=== PATIENT | female | born 1965 | race Caucasian/White ===

== ENCOUNTER → 2018-09-08 | Outpatient (CLI) | payer BC, SELFPAY ==
[2018-09-08 09:28] VITALS: BMI 26.2
--- NOTE | 2018-09-08 09:40 | RAD_ITS ---
STUDY: X-RAY - LEFT ANKLE REASON FOR EXAM: Lateral ankle pain. TECHNIQUE: 3 view(s) of the ankle. COMPARISON: None. FINDINGS: Normal visualized distal tibia and fibula. Normal medial and lateral malleoli. Normal tibiotalar articulation and ankle mortise. Normal visualized talus. There are posterior and plantar calcaneal enthesophytes. The visualized subtalar, talonavicular, calcaneocuboid and tarsal articulations are normal. The soft tissue structures are unremarkable. RAD/Ankle min 3 Views IMPRESSION: Calcaneal enthesopathy. Electronically Signed: Baljit Scott MD at 12:30 EDT Tel , Service support ,
== END | disposition home or self-care (01) ==
LOC: HPRAD 09:38
PROVIDERS: Family Provider Internal Medicine; PCP Internal Medicine; Referring Provider Orthopaedic Surgery; Visit Provider Orthopaedic Surgery
DX: M25.572 Pain in left ankle and joints of left foot (principal)
CPT/HCPCS: 73610

== ENCOUNTER 2018-09-14 11:49 | Outpatient (RCR) | payer BC, SELFPAY ==
[2018-09-08 09:28] VITALS: BMI 26.2
--- NOTE | 2018-10-31 11:14 | HP.PTEVAL_ITS ---
Patient's Visit Information RENZO HALL is a 52 year old F referred to Physical Therapy by Afsaneh Mitchell DO with a diagnosis of L ankle pain. Date of Evaluation: 09/14/18 Physical Therapist: John Masterson DPT - Visit Plan Frequency: 2x /Week Duration: 4-6 Weeks Plan: Start with US to lateral peroneals, ankle strengthening exercises and gentle ROM as toelrated. Progress as able. - Subjective Findings: Pt. is here today for her initial evaluation with diagnosis of L ankle pain. Pt. reports having increased pain for a while now, but has recently become worse. Pt. denies mech of injury. Pt. reports no N/T. Pt. has icnreased paln with all standing/walking and wt. bearing. Pt. reports havign an xray but no MRI. Pt. is able to sleep without issues. Pt. is hopeful to reduce symptoms in order to get back to all work and recreational activities without limitations. - Pain L ankle Pain Intensity (Out of 10): 4 Pain Intensity Range: 3, 9 Comment: pain throughout - Objective POSTURE: Pt. has equal wt. shift in stance. Pt. has sligth over pronation in SLS. Pt. has present ankle instability and proprioception issues. PALAPTION: Pt. at lateral ankle the worst, but does have some achilles tendon pain as well. NEURO: normal throuhgout. ROM: Pt. has full ROM, but does report increasred pain with EVR and with DF. MMT: Pt. has 4+/5 strength throughout and increased pain increase EVR and PF motions. GAIT: Pt. has slight antalgic pattern during L stance phase with gait, but very slight decreaed R step length. STAIRS: increased pain with descending. - Goals Goal 1:: Pt. to be I with HEP. Goal Time Frame: 4-6 Weeks Goal 2:: Pt. to have full L ankle ROM without increase in symptoms. Goal Time Frame: 4-6 Weeks Goal 3:: Pt to have increased L ankle strength to full withotu increase in symptoms. Goal Time Frame: 4-6 Weeks Goal 4:: Pt. to ambulate unlimited distances without incerase in symptoms. Goal Time Frame: 4-6 Weeks Goal 5:: Pt. to negotiate steps without increase in symptoms. Goal Time Frame: 4-6 Weeks Goal 6:: Pt. to be able to maintain SLS with increased stability for 30sec. Goal Time Frame: 4-6 Weeks - Rehabilitation Potential Physical Therapy Diagnosis: Pt. has signs of L ankle pain. Pt. has full motion, but icreased pain with end range EVR and DF motions. Pt. has pain with similar MMT testing. Pt. would benefit from PT to reduce symptoms and increase strength for improved proprioception during walking and balance. Rehabilitation Potential: Good - Anticipated Interventions Patient/Client Instruction: Educate patient on: Condition, Plan of Care, Risk Factors, Benefits of Fitness Program For the Purpose of:: To improve decision making, To facilitate caregiver knowledge, To improve self management, To prevent re-injury, To improve ability to perform tasks related to life management, To improve tolerance to ADL's Therapeutic Exercise to Include: Strength training, Power training, Endurance training, Balance training, Agility training, Body mechanics, Passive ROM, Acti ve ROM For the Purpose of:: To decrease pain, To increase ROM, To improve nutrient delivery to tissue, To increase oxygenation perfusion, To improve muscle performance and motor function, To improve gait and locomotor functions, To improve health of tissue, To decrease soft tissue restriction, To increase flexibility/ROM Ultrasound (thermal/non thermal): Yes For the Purpose of:: To decrease pain, To increase ROM, To improve nutrient delivery to tissue Thank you for the opportunity to evaluate your patient. For Medicare and Medicare HMO plans, please review the plan of care and approve it. It will need to be FAXED BACK to us at [phone] for Medicare purposes. For Medicare only, by signing this I certify the plan of care. Please let me know if there are questions or concerns regarding this plan of care. Physician Signature: Date:
== END 2018-09-14 19:00 | disposition home or self-care (01) ==
LOC: PT 11:49
PROVIDERS: Family Provider Internal Medicine; PCP Internal Medicine; Visit Provider Orthopaedic Surgery
DX: M25.572 Pain in left ankle and joints of left foot (principal)
CPT/HCPCS: 97161

== ENCOUNTER → 2018-09-27 | Outpatient (CLI) | payer BC, SELFPAY ==
[2018-09-08 09:28] VITALS: BMI 26.2
--- NOTE | 2018-09-27 10:18 | MRI_ITS ---
STUDY: MRI LEFT ANKLE WITHOUT CONTRAST REASON FOR EXAM: Female, 52 years old. Left heel and anterior ankle pain for 18 months. TECHNIQUE: Standardized fat and water weighted pulse sequences were obtained in all 3 orthogonal planes. COMPARISON: X-rays of the ankle dated September 08, 2018. FINDINGS: Normal subcutis adipose space. Normal posterior tibialis tendon. Normal flexor digitorum longus tendon. Normal flexor hallucis longus tendon. Normal peroneus longus and brevis tendons. Normal tibialis anterior tendon. Normal extensor hallucis longus tendon. Normal extensor digitorum longus tendons. Normal Achilles tendon and teno-osseous insertion. Minimal thickening of the proximal plantar fascia (sagittal series 7 images from a). Normal plantar calcaneal tubercles. Normal intrinsic muscles of the rearfoot. Normal distal tibiofibular syndesmotic ligamentous complex. Normal lateral ligamentous complex. Normal subtalar ligaments and sinus tarsi. Normal deltoid ligamentous complexes. Normal plantar calcaneonavicular (spring) ligament. Small tibiotalar joint effusion (sagittal series 7 image 9). Normal talar dome. Mild arthrosis of the subtalar joint with a small subtalar joint effusion (sagittal series 7 images 7-11). Normal talonavicular articulation. Normal calcaneocuboid articulation. Normal navicular-cuneiform articulations. MRI/Lower Ext Joint Only (Routine) IMPRESSION: Minimal thickening of the proximal plantar fascia. Mild arthrosis of the subtalar joint with a small subtalar joint effusion. Small tibiotalar joint effusion. Electronically Signed: Clyde Chatman MD at 11:25 EDT , Service support ,
== END | disposition home or self-care (01) ==
LOC: MRI 10:13
PROVIDERS: Family Provider Internal Medicine; PCP Internal Medicine; Referring Provider Orthopaedic Surgery; Visit Provider Orthopaedic Surgery
DX: M76.62 Achilles tendinitis, left leg (principal); M67.88 Other specified disorders of synovium and tendon, other site
CPT/HCPCS: 73721

== ENCOUNTER 2018-12-02 05:57 | Day surgery (SDC) | payer BC, SELFPAY ==
[2018-09-29 12:34] VITALS: BMI 26.2
[2018-12-02] VITALS (14 sets, daily range): BP systolic 127–147; BP diastolic 72–92; PULSE 71–94; RESP 14–16; TEMP 36.1–36.8; O2SAT 93–99; BMI 29.0
--- NOTE | 2018-12-02 06:13 | EKG12_ITS ---
Test Reason : PRE-OP Blood Pressure : / mmHG Vent. Rate : 070 BPM Atrial Rate : 070 BPM P-R Int : 194 ms QRS Dur : 104 ms QT Int : 410 ms P-R-T Axes : 054 016 020 degrees QTc Int : 442 ms Normal sinus rhythm Low voltage QRS T wave abnormality, consider anterior ischemia Abnormal ECG When compared with ECG of 20-JAN-2015 10:21, No significant change was found Confirmed by JOSE OAKLEY, SIMONE ([id number]), publications editor LEONEL NG ([id number]) on 12/05/2018 3:49:02 PM Referred By: Mary Phillips Confirmed By:MICHELE GARCIA MD
[2018-12-02] MEDS: Lactated Ringers 1,000 ML 80 ML IV (07:00)
--- NOTE | 2018-12-02 07:30 | RAD_ITS ---
STUDY: X-RAY - LEFT CALCANEUS REASON FOR EXAM: Female, 52 years old. Resection of heel spur. TECHNIQUE: 3 cone down intraoperative view(s) of the calcaneus were obtained. COMPARISON: None. FINDINGS: Intraoperative imaging provided for excision of the spur at insertion of the Achilles tendon. RAD/Calcaneus min 2 Views IMPRESSION: Intraoperative imaging provided for resection of the spur at the level of the insertion of the Achilles tendon. Electronically Signed: Deric Campbell, at 13:13 EDT , Service support ,
[2018-12-02] MEDS: Bupivacaine Mpf 0.5% 30 ML VIAL (10:11)
--- NOTE | 2018-12-02 10:19 | RAD_ITS ---
STUDY: X-RAY - LEFT FOOT CLINICAL: Female, 52 years old. Left heel spur resection. TECHNIQUE: 3 view(s) of the foot. COMPARISON: Comparison is made with prior examination earlier today as well as September 08, 2018. FINDINGS: The patient is status post resection of the spur at the insertion of the Achilles tendon. RAD/Foot min 3 Views IMPRESSION: Status post resection of the spur at the insertion of the Achilles tendon. Electronically Signed: Deric Campbell, at 13:15 EDT , Service support ,
--- NOTE | 2018-12-02 10:21 | DCINST_ITS ---
Discharge Diet: No Restrictions Discharge Activity: May not drive while taking narcotic pain medications. Weight Bearing Status: No weight bearing Keep extremity elevated above heart level: Left Leg Call your doctor if your incision/area has: Continuous Slow Oozing, Sudden Increased Bleeding, Increased Pain/ Swelling, Increased Redness, Foul Smelling Discharge, Swelling at the incision site Call your doctor if you observe: Fever of 101 or Higher, Coldness, Increased Pain, Numbness or Tingling, Calf discomfort, Uncontrolled pain Cleanse incision/area with: Keep Dressing Clean & Dry Allergies/Adverse Reactions: Allergies bacitracin [From Neosporin ([id number])] Allergy (Verified 11/28/18 09:08) Rash bacitracin zinc [From Neosporin ([id number])] Allergy (Verified 11/28/18 09:08) Rash beeswax Allergy (Verified 11/28/18 09:08) Rash coconut oil Allergy (Verified 11/28/18 09:08) Rash diphenhydramine HCl [From Benadryl] Allergy (Verified 11/28/18 09:08) Hives erythromycin base Allergy (Verified 11/28/18 09:08) Rash latex Allergy (Verified 11/28/18 09:08) Rash neomycin sulfate [From Neosporin ([id number])] Allergy (Verified 11/28/18 09:08) Rash NSAIDS (Non-Steroidal Anti-Inflamma Allergy (Verified 11/28/18 09:08) Rash Penicillins Allergy (Verified 11/28/18 09:08) Anaphylaxis polymyxin B [From Neosporin ([id number])] Allergy (Verified 11/28/18 09:08) Rash strawberry Allergy (Verified 11/28/18 09:08) Rash topiramate [From Topamax] Allergy (Verified 11/28/18 09:08) Rash tramadol Allergy (Verified 11/28/18 09:08) Rash aspirin Adverse Reaction (Verified 11/28/18 09:08) Vomiting codeine phosphate [From Tylenol-Codeine #3] Adverse Reaction (Verified 11/28/18 09:08) Vomiting hydrocodone Adverse Reaction (Verified 11/28/18 09:08) Other SEVERE HEADACHES, POSSIBLE MIGRAINES morphine Adverse Reaction (Verified 11/28/18 09:08) Swelling Medications to take at Discharge Amitriptyline HCl [Elavil] 150 mg PO QHS 01/20/15 Esomeprazole Mag Trihydrate [Nexium] 20 mg PO DAILY 01/20/15 Metaxalone [Skelaxin] 800 mg PO TID PRN PRN 01/20/15 Nabumetone [Relafen] 750 mg PO PRN PRN 01/20/15 Simvastatin [Zocor] 40 mg PO QHS 01/20/15 Sumatriptan Succinate [Imitrex] 100 mg PO .X1 PRN 01/20/15 Ondansetron [Zofran Odt] 4 mg PO Q8H PRN PRN #10 tab 04/01/16 Gabapentin [Neurontin] 100 mg PO QHS 11/28/18 Multivitamin [Daily Multiple Vitamin] 1 ea PO DAILY 11/28/18 Primary Care Physician: Alexandria Styles MD [Primary Care Provider] - Test Results: Test results from this visit will be discussed in further detail at your follow- up appointment, if applicable. Please Follow Up With: Mary Phillips DPM When: [facility]. Call [phone] sooner if concerns. Proposed Discharge Date: 12/02/18
--- NOTE | 2018-12-02 10:22 | PCM.OPRPT ---
Problem List (1) Calcaneal spur, left Status: Chronic (2) Achilles tendinitis, left leg Status: Chronic (3) Gastrocnemius equinus of left lower extremity Status: Chronic Report of Operation Date of Procedure: 12/02/18 Pre-Operative Diagnosis: Left insertional Achilles tendinitis. 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 Left gastrocnemius equinus Post-Operative Diagnosis: Left insertional Achilles tendinitis. 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 Left gastrocnemius equinus Surgery/Procedure Performed:: Endoscopic gastrocnemius recession left lower extremity. Resection of left calcaneus exostosis with de and reattachment of the Achilles tendon with bone anchors Description of Surgical Findings:: Hemostasis: Well-padded pneumatic left thigh tourniquet 62 minutes, 350 mmHg Materials: 3-0 Vicryl, 4-0 nylon, 2-0 FiberWire, Arthrex speed bridge including 4.75 mm swivel lock anchors (4) Complications: None Specimens: None The patient tolerated the procedure and anesthesia well. She was transported to the PACU with vital signs stable and vascular status intact to the left lower extremity. She did have some abnormal rhythm strip changes noted intraoperative and an EKG and cardiac labs were ordered for the PACU evaluation. Postoperative x-rays were reviewed prior to leaving the operating room with adequate resection of the posterior calcaneus exostosis. No acute injuries noted. Postoperative orders were entered electronically. nuclear reactor technician: none - Surgeon: Mary Phillips DPM. Solderer Assembly Repair: Noa Nobles [id number] Type of Anesthesia:: General, Local - Intraoperative: 1% lidocaine with epinephrine was administered to the gastrocnemius recession site, 7 mL. One-to-one ratio of 1% lidocaine plain and 0.5% Marcaine plain was administered in a sterile and tibial nerve block fashion to the left lower extremity, 11 mL Specimen's removed: none Estimated Blood Loss (mL): <50 mL Description of Procedure: Indications: This 52-year-old female with significant past medical history of GERD, chronic migraines, and hypercholesteremia presents complaining of chronic posterior left heel pain. She has pain and limitations with daily activities including walking and standing. Her pain is also aggravated with direct touch. She failed conservative care including change in shoes and insoles, rest, offloading with aperture pads, heel lifts, stretching and strengthening exercises, and pain and anti inflammation medication. Preoperative x-rays demonstrate Flaquito deformity with a prominent posterior superior calcaneal margin. There is also insertional Achilles exostosis noted to the posterior central and lateral aspect clinically and radiographically. No other acute injuries are noted. Her calcaneal inclination angle was also normal. There was no bone cysts or other trabecular irregularities of the calcaneus noted on xrays. She has pain on palpation mainly to the posterior central lateral Achilles insertion area of the left achilles on the calcaneus. She also has pain to the retrocalcaneal bursa site. She has reduced ankle dorsiflexion of -5 degrees with the knee extended of the left lower extremity. Her preoperative MRI demonstrated exostosis to the posterior Achilles insertion on the calcaneus with intratendinous calcification. There is also a prominent posterior superior calcaneus tuberosity with inflammation to the retrocalcaneal bursa. There is no other distinct Achilles tears or rupture. The preoperative indication, planned procedure, possible benefits, risk, complications, and anticipated healing time and management were discussed in detail the patient. She understands and elects to proceed with surgery at this time. No guarantees were made. She understands risks and complications may include but are not limited to the following: pain, swelling, scarring, over under correction, allergic reaction, blood clot, need for further surgery, delayed or nonhealing of the incision or bone, hardware failure, recurrence, loss of limb, function, life. The informed surgical consent and limb were signed. Her preoperative clearance was obtained by her primary care physician and her preoperative diagnostic data including CBC, CMP, and EKG were reviewed. Additionally, on the morning of surgery elastic assembler did review the EKG to confirm the abnormal changes were consistent with prior EKGs and no acute injuries were suspected at this time. This was also reviewed by PCP and anesthesiologist. Procedure in detail: The patient was transported to the operating room via cart. General anesthesia was initiated by the anesthesia team. She was then carefully placed on the operating table in the prone position in a well-padded and protected manner. Preoperative IV antibiotics were administered. A well-padded pneumatic left thigh tourniquet was placed. The left lower extremity is prepped and draped in usual aseptic manner. Local anesthetic was administered at this time by the podiatry team. Surgery began the following manner. The medial gastrocnemius head was marked and a 1 cm linear incision was made along the medial border of the gastrocnemius aponeurosis several centimeters distal to the medial gastrocnemius head. Blunt dissection was performed down to identify the gastrocnemius aponeurosis border. Next a metallic trocar was entered between the gastrocnemius aponeurosis and the superficial fascial layer in which a stab incision was made laterally to allow this to exit. The endoscopic cannula was next entered. Next the arthroscopy camera was entered through the cannula and the viewing field was cleansed with cotton tip applicators and a rasp. The gastrocnemius aponeurosis was clearly identified without evidence of entrapped neurovascular structures along the entire course. Next an endoscopic blade was entered and this was carefully released with the foot in a dorsiflexed position until the underlying soleus muscle belly was visualized. Intraoperative pictures were taken to capture the full release of this structure. Improved ankle dorsiflexion was noted after this was released. This was irrigated with saline. Minimal Vicryl suture was used to reapproximate the deep part of the medial portal site. The skin was reapproximated with nylon sutures utilizing horizontal mattress technique. Attention was next directed to the posterior aspect of the left heel. An Esmarch bandage was used to exsanguinate the left lower extremity and the tourniquet was inflated at this time. A curvilinear incision was made through the skin. Minimal blunt dissection was performed down to the Achilles tendon level taking care to create a full-thickness flap and to allow good exposure to the preoperatively marked sites of pain. A fresh 15 blade was next used to incise the Achilles tendon centrally and this was reflected medially and laterally with a distal T incision to allow good exposure. The prominent hypertrophic posterior heel spur was identified and was resected with a sagittal saw and rongeur. This was further rasped down until smooth. Intraoperative fluoroscopy was used to confirm adequate resection. It is noted the clinically marked area of palpation pain was also smoothed and there was no longer a prominent bone remaining. The Achilles tendon appeared to be overall intact without additional tears or hypertrophy. The retrocalcaneal bursa that was inflamed clinically and also an MRI exam was also excised with a rongeur. This was copiously irrigated with normal saline. Next the swivel lock anchors were entered to apply the speed bridge with the fiber tape. The two proximal anchors were applied approximately 1 cm proximal to the distal most insertion point of the Achilles. This was performed successfully in a non divergent manner according to standard protocol. The Achilles was noted to be in a good resting tension position. A free 2-0 fiber wire was used to reapproximate the longitudinally incised Achilles. The remaining 2 distal anchors were applied to the distal posterior aspect of the calcaneus. The fiber wires were laying flat and there were no palpable prominent soft tissue or bone remaining. Solid fixation was achieved. Proper positioning and adequate spur resection was confirmed with intraoperative fluoroscopy. No acute injuries were noted. The tourniquet was deflated at this time and brisk capillary refill time was noted to all digits of the left foot and also to all incisional margin sites. Postoperative injection was also administered this time. Deep closure was achieved with 3-0 Vicryl and the skin was reapproximated with 4-0 nylon utilizing horizontal mattress technique. A postoperative dressing was applied including jumpstart silver impregnated dressing secured with an overlying tegaderm. Additional gauze and Betadine were applied to the gastrocnemius recession site and this was secured gauze, abdominal pad, Kerlix, and ROSEMARIE wrap. A well-padded pneumatic left lower extremity splint was applied with the foot in a slightly plantarflexed position and further secured with ROSEMARIE wrap. Care was taken to create an offloading pocket to keep pressure off of the achilles repair site. After procedure: The patient tolerated the procedure and anesthesia well. She was transported to the PACU with vital signs stable and vascular status intact to left lower extremity. She was advised to ice and elevate for pain and inflammation management. She was advised to remain nonweightbearing to the left lower extremity with the posterior mold splint in place and the use of crutches or walker for assistance. She will take Percocet as needed for pain control and was advised on safe and proper use. To keep the dressing and splint intact until [facility]. Postoperative x-rays were already reviewed. No specimens were sent. A repeat post operative EKG and troponin was ordered. Her lab results were normal and she was discharged home after anesthesia review. Her postoperative orders were entered electronically. Mary Phillips DPM, [facility] Grafts/Implants Used: none - Complications none - Admit VTE Documentation VTE Present on Admission: No VTE Mechan Device Prophylaxis: SCD's VTE Pharm Prophylaxis ordered?: No Reason prophylaxis not ordered:: Procedure Not Indicated
--- NOTE | 2018-12-02 10:41 | EKG12_ITS ---
Test Reason : POST OP Blood Pressure : / mmHG Vent. Rate : 076 BPM Atrial Rate : 076 BPM P-R Int : 216 ms QRS Dur : 116 ms QT Int : 436 ms P-R-T Axes : 050 029 117 degrees QTc Int : 490 ms Sinus rhythm with 1st degree A-V block Low voltage QRS Non-specific ST & T wave changes Prolonged QT Abnormal ECG When compared with ECG of 02-DEC-2018 06:52, MANUAL COMPARISON REQUIRED, DATA IS UNCONFIRMED Confirmed by JOSE OAKLEY, SIMONE ([id number]), material expeditor LEONEL NG ([id number]) on 12/05/2018 3:49:28 PM Referred By: Mary Phillips Confirmed By:MICHELE GARCIA MD
== END 2018-12-02 13:30 | disposition home or self-care (01) ==
LOC: SDC 05:59 → AC 06:00
PROVIDERS: Anesthesiology; Family Provider Internal Medicine; PCP Internal Medicine; Referring Provider Podiatrist; Visit Provider Podiatrist
PROC: (CPT 29999; principal; 2018-12-02 07:15)
PROC: (CPT 28899; 2018-12-02 07:15)
DX: M77.32 Calcaneal spur, left foot (principal); M76.62 Achilles tendinitis, left leg; M21.6X2 Other acquired deformities of left foot; K21.9 Gastro-esophageal reflux disease without esophagitis; E78.00 Pure hypercholesterolemia, unspecified; G43.909 Migraine, unspecified, not intractable, without status migrainosus; R01.1 Cardiac murmur, unspecified; G25.81 Restless legs syndrome; F32.9 Major depressive disorder, single episode, unspecified; Z78.0 Asymptomatic menopausal state; Z79.899 Other long term (current) drug therapy; Z87.891 Personal history of nicotine dependence
CPT/HCPCS: 27650; 28119; 29999; 36415; 73630; 73650; 76000; 84484; 93005; J7120; J2405

== ENCOUNTER 2019-05-15 11:30 | Outpatient (RCR) | payer BC, SELFPAY ==
[2018-12-02 06:49] VITALS: BMI 29.0
--- NOTE | 2019-01-27 12:54 | HP.PTEVAL_ITS ---
Patient's Visit Information RENZO HALL is a 53 year old F referred to Physical Therapy by Mary Phillips DPM with a diagnosis of Left Gastroc Resection, heel resection, and reattatchment of the achiles Date of Evaluation: 01/27/19 Physical Therapist: Antonella Heránndez DPT - Visit Plan Frequency: 2x /Week Duration: 4 Weeks Plan: Focus on LE and core strength/stabilization and balance. Progression: cam with heel lift --- no heel lift ---out of CAM as tolerated. Fwb. HEP: ankle ROM, gastroc stretch gentle, WS gentle - Subjective Findings: Left Gastroc Resection, heel resection, and reattatchment of the ac jaspal 12/02/18. Is up to 75% weight bearing but wants her to wean into 100%. Patient reports that she has tenderness in the back of the heel just when she touches it. Current: 2/10 tender due to taking the boot off. Takes the boot off at night but when she is up and moving she has the boot on. Worst in the past week: 8/10 Agg: touching it, bumping it. Fell yesterday- but did not land on her foot. She falls a lot- long before this- has not had tests run- MD is not concerned. Best:0/10 Eases: pain medication, ice. Describes the pain as sharp/shooting and dull and achy. No pain that radiates up the leg. N/T from the surgery. Sleep: not disturbed- elevated at night. Work: cleans trailers- plans to go back. Very active before and wants to get back to doing all her normal things. PMHx/Meds: no changes since surgery. - Objective Posture: FH, RS. Gait: axillary crutches with WB through left LE with step through gait pattern. SLS: able to weight shift slightly- with foot flat on floor. ROM: DF: neutral with gentle OP, PF: 60 degrees, Inv: 30 degrees Ever: 30 degrees. Strength: 4-/5 throughout available range. Girth: Figure 8: 46.5 cm, Mets: 19/5 cm, Mall: 23 cm. Flex: Gastroc: severe Soleus: moderate HS: moderate - Goals Goal 1:: Patient will be I with HEP and progression Goal Time Frame: 4-6 Weeks Goal 2:: Patient will ambulate >300 feet with a normalized gait pattern in a shoe Goal Time Frame: 4-6 Weeks Goal 3:: Patient will demo 10 degrees of DF Goal Time Frame: 4-6 Weeks Goal 4:: Patient will SLS for 15 sec without LOB Goal Time Frame: 4-6 Weeks - Rehabilitation Potential Physical Therapy Diagnosis: Patient presents s/p surgical intervention to the left ankle- she has decreased ROM, strength and muscular endurance leading to abnormal gait and decreased ability to perform ADL's Rehabilitation Potential: Fair - Anticipated Interventions Patient/Client Instruction: Educate patient on: Benefits of Fitness Program Therapeutic Exercise to Include: Strength training, Endurance training, Balance training, Body mechanics, Postural training, Flexibilty training, Gait and locomotor training, Dynamic Lumbar Stabilization For the Purpose of:: To improve muscle performance and motor function Cryotherapy (ice pack, ice massage): Yes Thermo therapy (hot pack): Yes Thank you for the opportunity to evaluate your patient. For Medicare and Medicare HMO plans, please review the plan of care and approve it. It will need to be FAXED BACK to us at [phone] for Medicare purposes. For Medicare only, by signing this I certify the plan of care. Please let me know if there are questions or concerns regarding this plan of care. Physician Signature: Date:
--- NOTE | 2019-02-23 12:06 | HP.PTREVAL ---
Mary Phillips DPM, It has been my pleasure to treat RENZO HALL over the last 8 visits for Left Gastroc Resection, heel resection, and reattatchment of the achiles . Please see the progress note below for an update on the physical therapy plan of care! Subjective: Patient reports that she is doing her exercises. She is in the flat CAM boot- the back part is irritated but she still does not love to push down through the heel. Has not fallen in 3 weeks. Uses 2 crutches when she is out and then is using a single crutch at home- that is a work in progress. Sleep is not disturbed. Worst: 05/29. Objective/Function: Gait: antalgic- using single crutch and CAM walker- step to gait pattern. [place]patoin: not tender. SLS: WS but unable to SLS. Observation: no s/s of infection- good healing. ROM: DF: 4 degrees, PF: 60 degrees, Ever: 40 degrees Inv: 50 degrees- no pain. Strength: 4/5 throughout ankle. Flex: HS: severe, Gastroc: severe, Soleus: moderate. Edema: none Plan Plan: Continue 2x a week for 4 weeks. Goals Goal 1:: Patient will be I with HEP and progression Goal Time Frame: 4-6 Weeks Goal Progress: Progressing Goal 2:: Patient will ambulate >300 feet with a normalized gait pattern in a shoe Goal Time Frame: 4-6 Weeks Goal Progress: Progressing Goal 3:: Patient will demo 10 degrees of DF Goal Time Frame: 4-6 Weeks Goal Progress: Progressing Goal 4:: Patient will SLS for 15 sec without LOB Goal Time Frame: 4-6 Weeks Goal Progress: Progressing Anticipated Interventions Patient/Client Instruction: Educate patient on: Benefits of Fitness Program Therapeutic Exercise to Include: Strength training, Endurance training, Balance training, Body mechanics, Postural training, Flexibilty training, Gait and locomotor training, Dynamic Lumbar Stabilization For the Purpose of:: To improve muscle performance and motor function Cryotherapy (ice pack, ice massage): Yes Thermo therapy (hot pack): Yes Please do not hesitate to contact me at [phone] by phone or if you have questions or concerns regarding this new plan of care! Sincerely, Antonella Hernández DPT
--- NOTE | 2019-04-18 13:28 | HP.PTREVAL ---
Mary Phillips DPM, It has been my pleasure to treat RENZO HALL over the last 19 visits for Left Gastroc Resection, heel resection, and reattatchment of the achiles . Please see the progress note below for an update on the physical therapy plan of care! Subjective: Mild pain this date. Feels like she is improving. Pt reports she has fallen several times in the past. Objective/Function: L ankle DF ROM= 7 degrees. SLS: Pt is able to SLS on R LE greater than 15 seconds. L LE for only 2 seconds. Pt can ambulate greater than 300 feet without difficulty. Pt is progressing well toward Rx goals but would benefit from further skilled care to improve LE strength, balance, and ROM Plan Plan: cont with PT transitioning to land. Goals Goal 1:: Patient will be I with HEP and progression Goal Time Frame: 4-6 Weeks Goal Progress: Goal Met Goal 2:: Patient will ambulate >300 feet with a normalized gait pattern in a shoe Goal Time Frame: 4-6 Weeks Goal Progress: Goal Met Goal 3:: Patient will demo 10 degrees of DF Goal Time Frame: 4-6 Weeks Goal Progress: Progressing Goal 4:: Patient will SLS for 15 sec without LOB Goal Time Frame: 4-6 Weeks Goal Progress: Progressing Anticipated Interventions Patient/Client Instruction: Educate patient on: Benefits of Fitness Program Therapeutic Exercise to Include: Strength training, Endurance training, Balance training, Body mechanics, Postural training, Flexibilty training, Gait and locomotor training, Dynamic Lumbar Stabilization For the Purpose of:: To improve muscle performance and motor function Cryotherapy (ice pack, ice massage): Yes Thermo therapy (hot pack): Yes Please do not hesitate to contact me at [phone] by phone or if you have questions or concerns regarding this new plan of care! Sincerely, Michele Myrick, PT, ATC
--- NOTE | 2019-05-15 11:54 | HP.PTDCSUM ---
HP - PT D/C Summary It has been my pleasure to treat RENZO HALL under orders from Mary Phillips DPM, for the diagnosis of Left Gastroc Resection, heel resection, and reattatchment of the achiles 9 for a total of 27 visit(s). Discharge Date: Please see the following information for a summary of their discharge status. - Subjective Subjective: Patient reports that she is really happy with her progress. She feels that she is where she needs to be. She is going up/down the stairs indep. Is able to walk her dogs. There is nothing in her ADL's that she is unable to do. She think she can drive. She has had no falls. No pain in the ankle/foot unless she does something stupid. Does still swell sometimes but she thinks it always will. - Pain L heel Pain Intensity (Out of 10): 0 LB Pain Intensity (Out of 10): 0 - Overall Improvement % Improvement: 95 - Objective Objective/Function: Posture: good throughout. Gait: antalgic- decreased stance on the left LE with poor heel/toe pattern. SLS: 15 sec then lob. HR/TR: able. ROM: wfl. Strength:Ankle: 4+/5, Knee: 5/5, Hip: 4+/5 Core: fair - Goals Goal 1:: Patient will be I with HEP and progression Goal Progress: Goal Met Goal 2:: Patient will ambulate >300 feet with a normalized gait pattern in a shoe Goal Progress: Goal Met Goal 3:: Patient will demo 10 degrees of DF Goal Progress: Goal Met Goal 4:: Patient will SLS for 15 sec without LOB Goal Progress: Goal Met - Plan Plan: Discharge to HEP - D/C Information If there are questions or concerns regarding this patient's physical therapy, please feel free to call me at [phone]. Thank you for the referral of this patient. Sincerely, Antonella Hernández DPT
== END 2019-05-15 19:00 | disposition home or self-care (01) ==
LOC: PT 11:30
PROVIDERS: Family Provider Internal Medicine; PCP Internal Medicine; Referring Provider Podiatrist; Visit Provider Podiatrist
DX: Z98.890 Other specified postprocedural states (principal); Z91.81 History of falling
CPT/HCPCS: 97110; 97113; 97161; 97164

== ENCOUNTER 2021-05-12 12:17 | Outpatient (CLI) | payer BC, SELFPAY ==
--- NOTE | 2021-05-12 12:23 | RAD_ITS ---
STUDY: X-RAY - CERVICAL SPINE REASON FOR EXAM: Female, 55 years old. Neck pain and headache TECHNIQUE: 4 view(s) of the cervical spine were obtained. COMPARISON: None FINDINGS: Normal anterior atlantoaxial articulation. Normal odontoid process. There is straightening of the normal cervical lordosis. Normal vertebral bodies and endplates. Mild disc space narrowing throughout the cervical spine. The soft tissue structures are unremarkable. Surgical hardware in both sides of the mandible free of complication RAD/Cerv Spine 2 or 3 Views IMPRESSION: Mild age consistent degenerative changes, no acute findings Electronically Signed: Robi Mills MD at 16:32 EST ,
== END 2021-05-12 23:59 | disposition home or self-care (01) ==
LOC: RAD 12:22
PROVIDERS: PCP Internal Medicine; Referring Provider Anesthesiology Pain Medicine; Visit Provider Anesthesiology Pain Medicine
DX: M47.892 Other spondylosis, cervical region (principal)
CPT/HCPCS: 72040

== ENCOUNTER 2021-06-09 16:03 | Outpatient (CLI) | payer BC, SELFPAY ==
--- NOTE | 2021-06-09 16:05 | RAD_ITS ---
EXAM: XR RIGHT SHOULDER COMPLETE, 2 OR MORE VIEWS : 1965 CLINICAL INDICATION: SHOULDER PAIN TECHNIQUE: Two or more views of the right shoulder. This report was created using [employer] report generation technology. COMPARISON: None. FINDINGS: BONES/JOINTS: There is mild narrowing of the acromioclavicular joint. No acute fracture. No subluxation. Normal alignment. No sclerotic or destructive changes observed. SOFT TISSUES: Unremarkable. No soft tissue swelling or gas. No radiopaque foreign body. RAD/Shoulder min 2 Views IMPRESSION: No acute osseous abnormalities. There are degenerative changes with narrowing of the acromioclavicular joint. at 1744 Reported and signed by: Anthony López MD Electronically Signed: Anthony López MD at 17:43 EDT ,
--- NOTE | 2021-06-09 16:16 | RAD_ITS ---
EXAM: XR LEFT SHOULDER COMPLETE, 2 OR MORE VIEWS : 1965 CLINICAL INDICATION: SHOULDER PAIN TECHNIQUE: Two or more views of the left shoulder. This report was created using [employer] report generation technology. COMPARISON: None. FINDINGS: BONES/JOINTS: Unremarkable. No acute fracture. No subluxation. Normal alignment. Preservation of the joint space. No sclerotic or destructive changes observed. SOFT TISSUES: Unremarkable. No soft tissue swelling or gas. No radiopaque foreign body. RAD/Shoulder min 2 Views IMPRESSION: Negative left shoulder x-rays. at 1755 Reported and signed by: Anthony López MD Electronically Signed: Anthony López MD at 17:54 EDT ,
== END 2021-06-09 23:59 | disposition home or self-care (01) ==
LOC: RAD 16:04
PROVIDERS: PCP Internal Medicine; Referring Provider Anesthesiology Pain Medicine; Visit Provider Anesthesiology Pain Medicine
DX: M25.511 Pain in right shoulder (principal); M25.512 Pain in left shoulder
CPT/HCPCS: 73030

== ENCOUNTER → 2021-08-07 | Outpatient (CLI) | payer BC, SELFPAY ==
--- NOTE | 2021-08-07 15:06 | RAD_ITS ---
STUDY: X-RAY - LUMBAR SPINE REASON FOR EXAM: Female, 55 years old. LOW BACK PAIN M54.26 TECHNIQUE: XR Spine Lumbar 2 or 3 Views COMPARISON: None FINDINGS: Normal lumbar lordosis. There is no substantial scoliosis. There is a normal alignment of the vertebrae. Normal vertebral bodies and endplates. Normal disc space heights. The soft tissue structures are unremarkable. RAD/Lumbar Spine 2 or 3 Views IMPRESSION: There are no acute findings. Electronically Signed: Michele Radford MD at 15:37 EDT ,
== END | disposition home or self-care (01) ==
PROVIDERS: PCP Internal Medicine; Referring Provider Anesthesiology Pain Medicine; Visit Provider Anesthesiology Pain Medicine
DX: M54.16 Radiculopathy, lumbar region (principal)
CPT/HCPCS: 72100

== ENCOUNTER → 2021-09-10 | Outpatient (CLI) | payer BC, SELFPAY ==
[2021-09-10 12:33] LABS: BUP Internal Control LINE = VALID (VALID); Buprenorphine Drug Screen Positive (<10 ng/mL)
[2021-09-10 12:41] LABS: Amphetamine Urine VISTA NEGATIVE (<1000 ng/mL); Barbiturate Urine VISTA NEGATIVE (< 200 ng/mL); Benzodiazepine Urine VISTA NEGATIVE (< 200 ng/mL); Cocaine Urine VISTA NEGATIVE (< 300 ng/mL); Ecstacy Urine VISTA NEGATIVE (< 500 ng/mL); Methadone Urine VISTA NEGATIVE (< 300 ng/mL); PCP Urine VISTA NEGATIVE (< 25 ng/mL); THC Urine VISTA NEGATIVE (< 50 ng/mL); Vista UDS pH Range 5
== END | disposition home or self-care (01) ==
PROVIDERS: PCP Internal Medicine; Referring Provider Anesthesiology Pain Medicine; Visit Provider Anesthesiology Pain Medicine
DX: F11.20 Opioid dependence, uncomplicated (principal)
CPT/HCPCS: 80307

== ENCOUNTER 2021-12-03 13:00 | Outpatient (RCR) | payer BC, SELFPAY ==
--- NOTE | 2021-11-13 12:14 | HP.PTEVAL_ITS ---
Patient's Visit Information RENZO HALL is a 55 year old F referred to Physical Therapy by Dr. Neymar Shaw MD with a diagnosis of Neck pain. Date of Evaluation: 11/13/21 Physical Therapist: Agustín Alejandre, RUSLANT, OCS, CSCS - Visit Plan Frequency: 2-3x /Week Duration: 4-6 Weeks Plan: 2-3x/week for 4 weeks around vacation patient has in November. Mh, US to L UT, PROM L neck rotation and ext and manual traction, mobs for L rotation and extension. strengthening scap, posture and neck to HEP - Subjective Seeing [facility] for pain. Sent here for neck pain amy has gooten worse as it cracks and can get tingly down left shoulder blade. Has been there a number of months. Pain with catching 10/10 in L neck and it happens with turning head. Achy much of day and cracks if it turns. Sleep is not interrupted as long as she is on meds. Not employed. Has a 100 year old house that needs fixed up. Has wedding of son in 2 weeks in [place]. Lives with . Spends day cleaning house and messing aorund, works through pain. Basic ADLs are not a big problem. Has a patch in arm for all of her pain. - Pain L neck Pain Intensity (Out of 10): 5 Pain Intensity Range: 0, 10 - Objective Posture is forward head and prtracted scap. c/s L rot 40 and 50 R, 38 extension L more painful than r,. L UT tight vs R. SB not limited, just tight. Full UE AROM without pain. strength UE 4-/5 without pain or myotomal problems. reflexes 1/3 bi and tri. Sensation UE WNL to gross light touch. - c/s compression. Tender to the touch moderately L UT and lev scap area. - alar ligamnet test, - VAT - Balance/Special Test Scores Oswestry Neck Score: 7 - Goals Goal 1:: Full aROM cervical spine without pain or tightness Goal Time Frame: 4-6 Weeks Goal 2:: Pt neck feel 75% better with 2/10 pain at worst Goal Time Frame: 4-6 Weeks Goal 3:: I approp management of condition Goal Time Frame: 4-6 Weeks Goal 4:: ADLs without noticing neck pain or cracking Goal Time Frame: 4-6 Weeks - Rehabilitation Potential Physical Therapy Diagnosis: Neck pain and mobility limitations Rehabilitation Potential: Fair - Anticipated Interventions Patient/Client Instruction: Educate patient on: Condition, Plan of Care For the Purpose of:: To decrease pain, To increase ROM, To improve muscle performance and motor function, To increase tolerance to activity/condition/position, To improve ability of physical actions for home/community/work/leisure Therapeutic Exercise to Include: Strength training, Flexibilty training, Scapular Strength/Stabilization For the Purpose of:: To decrease pain, To increase ROM, To improve nutrient delivery to tissue, To improve muscle performance and motor function, To increase tolerance to activity/condition/position, To improve ability of physical actions for home/community/work/leisure Manual Therapy Techniques to Include: Mobilization, Passive ROM, Soft tissue m obilization For the Purpose of:: To decrease pain, To increase ROM, To improve muscle performance and motor function, To increase tolerance to activity/condition/position Thermo therapy (hot pack): Yes Ultrasound (thermal/non thermal): Yes For the Purpose of:: To decrease pain, To decrease swelling/inflammation Thank you for the opportunity to evaluate your patient. For Medicare and Medicare HMO plans, please review the plan of care and approve it. It will need to be FAXED BACK to us at [phone] for Medicare purposes. For Medicare only, by signing this I certify the plan of care. Please let me know if there are questions or concerns regarding this plan of c are. Physician Signature: Date:
--- NOTE | 2021-12-03 13:47 | HP.PTDCSUM ---
It has been my pleasure to treat RENZO HALL referred by Dr. Neymar Shaw MD, with the diagnosis of Neck pain for a total of 5 visit(s). Discharge Date: 12/03/21 Please see the following information for a summary of their discharge status. Subjective: Back from vacation. t was great. Neck is doing better. Almost does not hurt at all. Pain is minimal to gone. Swimiing at the beach helped. Got home exercises that she did while she was gone. To [place] tomorrow. Sleeping well . Activities at home are pretty normal. L neck Pain Intensity (Out of 10): 0 % Improvement: 95 Objective/Function: 68 AROM B cervical rotation and 55 ext without pain. Full UE and scap aROM without pain. No tenderness today in cervical region. Patient confident and comfortable continuing via HEP instead of continued therapy Goal 1:: Full aROM cervical spine without pain or tightness Goal Progress: Goal Met Goal 2:: Pt neck feel 75% better with 2/10 pain at worst Goal Progress: Goal Met Goal 3:: I approp management of condition Goal Progress: Goal Met Goal 4:: ADLs without noticing neck pain or cracking Goal Progress: Goal Met Plan: d/c to HEP If there are questions or concerns regarding this patient's physical therapy, please feel free to call me at [phone]. Thank you for the referral of this patient. Sincerely, Agustín Alejandre, DPT, OCS, CSCS Balance/Gait/Functional tests - Balance/Special Test Scores Oswestry Neck Score: 5
== END 2021-12-03 19:00 | disposition home or self-care (01) ==
LOC: PT 13:00
PROVIDERS: PCP Internal Medicine; Referring Provider Anesthesiology Pain Medicine; Visit Provider Anesthesiology Pain Medicine
DX: M54.2 Cervicalgia (principal)
CPT/HCPCS: 97110; 97161; 97164

== ENCOUNTER 2023-07-30 06:51 | Day surgery (SDC) | payer BC, SELFPAY ==
[2023-07-27 11:51] LABS: Magnesium 2.2 mg/dL (1.6-2.6)
[2023-07-27 11:54] LABS: Vitamin D,25 Hydroxy 39.6 ng/mL
[2023-07-27 12:37] LABS: Hemoglobin A1c 5.4 % (3.8-5.6)
[2023-07-28 16:09] LABS: Cotinine Screen Urine Negative ng/mL (Cutoff=300)
[2023-07-30] VITALS (10 sets, daily range): BP systolic 130–150; BP diastolic 81–97; PULSE 80–95; RESP 12–18; TEMP 36.1–37.2; O2SAT 93–99; BMI 28.8
--- NOTE | 2023-07-30 07:24 | PCM.OPRPT ---
Problems Associated Problem List Diagnoses (1) Gastrocnemius equinus of left lower extremity: (2) Achilles tendinitis, left leg: (3) Calcaneal spur, left: (4) Other bursitis, not elsewhere classified, left ankle and foot: (5) Strain of muscle and tendon of long extensor muscle of toe at ankle and foot level, left foot, initial encounter: (6) Tarsal tunnel syndrome, left lower limb: Report of Operation Date of Procedure: 07/30/23 Pre-Operative Diagnosis: 1. Gastrocnemius planus, left lower extremity 2. Achilles tendinitis, left lower extremity 3. Calcaneal spur, left heel 4. Retrocalcaneal bursitis, left lower extremity 5. Peroneal brevis tear, left lower extremity 6. Tarsal tunnel syndrome, left lower extremity Post-Operative Diagnosis: 1. Gastrocnemius planus, left lower extremity 2. Achilles tendinitis, left lower extremity 3. Calcaneal spur, left heel 4. Retrocalcaneal bursitis, left lower extremity 5. Peroneal brevis tear, left lower extremity 6. Tarsal tunnel syndrome, left lower extremity Surgery/Procedure Performed:: 1. Achilles tendon debridement and repair, left lower extremity 2. Partial excision of calcaneus, left lower extremity 3. Flexor hallucis longus tendon transfer, left lower extremity 4. Excision of retrocalcaneal bursa, left lower extremity 5. Peroneal brevis debridement and repair, left lower extremity 6. Steroid injection, tarsal tunnel, left lower extremity Description of Surgical Findings:: 1. Successful transfer of the flexor hallucis longus tendon to the calcaneus of the left extremity. 2. Successful reattachment of the Achilles tendon after debridement and repair with speed bridge anchor, left lower extremity 3. Evidence of tenosynovitis appreciated to the Achilles tendon which was debrided and sent to pathology 4. Complete removal of old hardware, speed bridge, left extremity 5. Evidence of exact Achilles strength/tension as compared to the contralateral limb. Surgeon: Masoud Villela disability insurance hearing officer: Pawan Mendez disability insurance hearing officer: John Jensen Type of Anesthesia: Block,Regional and General Anesthesiologist: Agustín Jordan Special Medications: Per anesthesia Specimen's removed: 1. Tenosynovitis, Achilles tendon, left lower extremity Drains: None Estimated Blood Loss (mL): 20 mL Fluids Replaced: Per anesthesia Description of Procedure: Indications For Operation: Mrs. Anglin is a 57-year-old female who was admitted to [facility] for elective left lower extremity surgery consisting of Achilles tendon debridement and repair, partial excision of calcaneus, FHL transfer, excision of bursa, peroneal brevis debridement and repair and steroid injection to the level of the Baxters nerve to the left lower extremity. Patient was seen in the private office for surgical consultation where MRI was reviewed with evidence of compromise to the level of the Achilles tendon, peroneal brevis and possible Baxters neuritis to left lower extremity. Conservative versus surgical treatment was offered to the patient. Patient admitted in office that she has been doing this for at least 2 years and would like to have a permanent fix even though she had left lower extremity surgery in the past by an outside provider. Patient is aware of all risk and benefits. Due to nature of the patient's left lower extremity deformity and has deemed necessary at this time to take the patient to the operating room to perform the above procedure to help correct the patient's deformity and relieve her constant pain. The nature of the problem, anticipated procedures, postop recovery/convalences and risk/complications include but not limited to infection, wound healing complications, digital amputation, hypertrophic scarring, numbness, tingling, chronic pain, CRPS, over and under correction, recurrence of deformity, DVT and or PE and the need for further surgery have been discussed in great detail with the patient. All questions have been answered to the patient's satisfaction. There are no guarantees given as to the outcome of the procedure. Description of Procedure: Under mild sedation, the patient was brought into the operating room and placed on the operating table in supine position. Once the patient was under general anesthesia intubation tube, the left lower extremity was blocked via anesthesia with a popliteal block. Please see procedure note from anesthesia for further detail. Next, a well-padded thigh tourniquet was applied to the left lower extremity. Next, the patient was flipped flipped prone by moving team. Next, the left lower extremity was prepped and draped in normal aseptic manner. Next, a timeout was then undertaken verifying the correct patient, extremity, visibility of preoperative markings, availability of the equipment. Next, attention was directed to the [right/left] lower extremity. Using a 6 inch Esmarch, left lower extremity was exsanguinated and elevated to 60 degrees for 1 minute. Procedure #1: Peroneal brevis debridement and repair (CPT: 68907) Next, attention was directed to the lateral aspect of the left lower extremity at the level of the peroneal brevis tendon. Using a sterile skin marker the incision was mapped out from the summit of the distal fibula to up 1 cm proximal to the insertion of the peroneal brevis of the styloid process of the fifth metatarsal base. Using a number #15 blade a full-thickness incision down to subcutaneous tissue was performed with care not to violate the tendinous sheath. All perforators were cauterized and ligated as necessary. Continued blunt dissection was carried down with a moist Ray-Yesenia. Using a [place] and Metzenbaum scissors the sheath was identified of the peroneal brevis. The sheath was opened to expose the peroneal brevis tendon which showed evidence of a longitudinal tear approximately 4 cm. Using a #5 mm dermal curette debridement and repair of the peroneus brevis tendon was performed. The tendon was read tubularized with 3-0 PDS in running baseball stitch suture technique. Identification of the peroneus longus tendon was identified and showed no evidence of tear. The incision was flushed with copious with normal saline. The deep layer and tendinous sheath was closed with 3-0 Monocryl l and running locking suture technique. The subcutaneous layer was reapproximated and closed with 3-0 Monocryl in running suture technique. The skin was closed and reapproximated using 3-0 nylon in horizontal mattress suture technique. Procedure #2: Achilles tendon debridement and repair (CPT: 73956). Procedure #3: Excision of retrocalcaneal bursa (CPT: 95070). Procedure #4: Partial excision of calcaneus (CPT code: 79972). Procedure #5: Flexor hallucis longus tendon transfer (CPT: 03133) Next, attention was directed to the Achilles tendon the left lower extremity. Using a sterile skin marker incision was marked out posterior medial to the Achilles tendon. Using a #15 blade a full-thickness lesion down to subcutaneous tissue was made. Continue blunt dissection was carried down to the level of the peritenon which showed evidence of scar tissue from previous surgery. Next, using a deep #15 blade, the Achilles tendon was incised centrally all the way down to the enthesophytes of the calcaneus. The Achilles tendon was booked and ended open allowing for exposure of the exostosis/deformity as well as the osteophytes to the left heel. The retrocalcaneal bursa was identified and removed at this time. Copious amounts of normal saline was used to flush the incision area. Next, using a sagittal saw and #111 blade, the exostosis and enthesophytes of the calcaneus were cut and removed without incident. It was noted, that after removal of the enthesophytes there was depression at the level of the skin to confirm that all necessary regrowth of bone was removed. Next, using a sagittal saw and blade the dorsal aspect of the level of the Flaquito's deformity was removed with partial excision of calcaneus. All the sharp edges of the calcaneus were smoothed with a reciprocating power rasp. Next, attention was redirected back to Achilles tendon, there showed evidence on the operating table of Achilles tendinosis. Using a #15 blade, the Achilles tendon was debrided down to and including tendon which was removed greater than 50%, passed to the back table to be sent off for pathology and identification. It was decided that after removal of copious amounts of tendinosis from the Achilles tendon that we will need to perform a FHL tendon transfer to left lower extremity. Next: Continue blunt dissection was carried down into the deep vault of the cages triangle where the fascia was identified and removed to expose the FHL tendon and muscle belly. Continued blunt dissection was carried down with surgeon's finger which was allowed to loop the flexor hallucis longus tendon and muscle belly. The right ankle was plantarflexed followed by the hallux and IPJ great exposure of the tendon was noted with careful retraction of the neurovascular bundle with a large [place] retractor the tendon was harvested without incident. There showed evidence of grade harvest of the tendon that allow for an excellent transposition into the superior margin of the calcaneus. The FHL tendon was whipstitched using Arthrex whipstitch kit with the wrap in the room. Next using the large K wire for transfer a K wire was placed from superior to inferior through the calcaneus at the bottom of the foot not to violate any neurovascular structures or violating the major plantar area of the calcaneal tubercle. Using the reamer, the calcaneus was reamed to approximately 20 mm. Depth was checked with mini C arm fluoroscopy. The flexor hallucis longus tendon was pulled through its glide hole and was tensioned to the level of the contralateral lower extremity. A 6.2 mm interference/Bio-Tenodesis screw was inserted per the firearms sales associate's recommendation with the rep in the room. There showed evidence of plantarflexion with the knee flexed at 90 degrees as compared to the contralateral limb. The incision was flushed with copious also normal saline. The Achilles tendon was reattached/approximated back to the insertion on the calcaneus using the Arthrex speed bridge per the firearms sales associate's recommendation with her rep in the room. Next, Arthrex a flex was applied per the firearms sales associate's recommendation around the Achilles tendon to prevent adhesion. The Achilles was closed and reapproximated using 3-0 Monocryl and running suture technique. The peritenon and deep layer were closed using 3-0 Monocryl and running lock or suture technique. The left lower extremity thigh tourniquet was deflated and reperfusion was noted to the left lower extremity. All bleeders were cauterized as necessary. The subcutaneous layer was reapproximated and closed using 3-0 Monocryl in running suture technique. The skin was reapproximated and closed using 4-0 Monocryl and running subcuticular suture technique. The left lower extremities were cleaned and patted dry. Next, 1 cc of Endologix Via Flow was injected in aliquots to all levels of the incision to the Achilles and peroneus brevis without incident. Procedure #6: Left lower extremity steroid injection to the level of the Baxters nerve (CPT: 10581) Next, attention was directed to the medial aspect of the level of the Baxters nerve. Using a 3 cc injection of 1 cc of 2% Xylocaine plain, 1 cc of dexamethasone phosphate, and 1 cc of Kenalog 10 was administered without incident to the level of the Baxters nerve. Next, steri-Strips were applied to the skin to hold the epidermis in place. The incision was dressed with jumpstart, dry sterile dressing and a 2 layer Fonseca AO splint was applied to the left lower extremity and plantarflexion fashion. The patient tolerated the procedure and anesthesia well and apparent satisfactory condition and was transported to the PACU for further monitoring prior to discharge home. Vital signs stable and vascular status intact to all digits bilateral. Need for skilled administrative sales assistant: John Jensen DPM was critical to the outcome of the case. During the course of the procedure the administrative sales assistant physician played a vital role. His intimate knowledge of my steps in the procedure aided in safe and expedient completion of the procedure. The administrative sales assistant surgeon played a vital role in positioning particularly in obtaining the appropriate positioning. The administrative sales assistant surgeon was also vital in the retraction of soft tissues during the exposure and protecting vital structures when needed. The surgeon was also vital and obtaining reduction and assisting with hardware placement throughout the case. Post Operative Plan: Weightbearing: No weightbearing to the left lower extremity with knee scooter, wheelchair and/or crutches. Full weightbearing to the right lower extremity. Antibiotics: 900 mg clindamycin through the IV DVT Prophylaxis: 40 mg Lovenox daily [place]is: None Dressing: Jumpstart, dry sterile dressing, 2 layer AO splint in plantarflexion X-Rays: Post-operative films taken on the operating room. Pain Medication: Percocet 5/325, Flexeril 10 mg Follow-up: Patient will follow-up with Dr. Villela in private office 1 week post surgery. Grafts/Implants Used: Aflex, via flow 1 cc Complications None Admit VTE Documentation VTE Present on Admission: No VTE Mechan Device Prophylaxis: SCD's VTE Pharm Prophylaxis ordered?: Yes
[2023-07-30] MEDS: Magnesium 1 GM over 15 mins IV (07:36)
[2023-07-30] MEDS: Lactated Ringers 1,000 ML 15 ML IV (07:36)
[2023-07-30] MEDS: Acetaminophen 500 MG Tablet 1000 MG PO (07:37)
[2023-07-30] MEDS: Gabapentin 600 MG Tablet PO (07:37)
[2023-07-30 08:04] LABS: Bedside Glucose 105 mg/dL (74-106)
--- NOTE | 2023-07-30 08:15 | RAD_ITS ---
CLINICAL HISTORY: PAIN-achilles tendon debridement and repair Date: 07/30/2023 8:15 AM Date of : 1965 Images assigned to this order were provided in conjunction with a surgical procedure performed in the operating room/procedural suite. Please see operative report for details. Fluoroscopic images: 18 Fluoroscopic time: 29 seconds Cumulative dose: NA, mGym2; 3.1348; mGy Imaging documents postoperative changes involving the LEFT calcaneus. Refer to procedural note for complete description. Impressions: 1. Fluoroscopic guidance for surgical planning and confirmation Electronically Signed: Hong Bernal MD at 17:32 EDT , RAD/Ankle 2 Views IMPRESSION: undefined
[2023-07-30] MEDS: Clindamycin 900 MG/50 ML BAG 75 MG IV (08:30)
--- NOTE | 2023-07-30 08:30 | TESH_PTH ---
PATIENT: RENZO HALL LOC: [facility] U#:[id number] AGE/SX: 57/F ROOM: RE07/30/[address]: Dr. Masoud Villela DPM : 1965 BED: DIS: 07/30/2023 SPEC #: [id number] RECD: 07/30/23 13:32 STATUS: KOREY RASHAWN #: [id number] LYNDSAY: 07/30/23 08:[address]: Masoud Villela DEPT: SURGICAL PATHOLOGY RECD BY: Rashad Eagle ENTERED: 08/02/23 07:15 SP TYPE: TENDON OTHR DR: MD Dr. Alexandria Santoyo MD Tissues: Tendon and tendon sheath, NOS Procedures: Surgery Specimen Level III HEADER OPERATION: Left Achilles tendon debridement and repair PRE-OP DIAGNOSIS: Gastrocnemius equinus of left lower extremity, Achilles tendonitis left leg, calcaneal spur, left, bursitis, strain of muscle and tendon extensor muscle, tarsal tunnel syndrome, left TISSUE SUBMITTED: Debridement of Achilles tendon, left MICROSCOPIC DIAGNOSIS Achilles tendon left, repair and debridement: Fragments of dense fibroconnective tissue and fibroadipose tissue with reactive changes. / 08/03/23 MICROSCOPIC DESCRIPTION Slides are reviewed. GROSS DESCRIPTION Received in fixative is one container labeled with the patient's name and designated Left Achilles tendon. The specimen consists of multiple irregular and elongated fragments of light bustillo-white soft tissue measuring in aggregate 3.0 x 2.2 x 0.2cm. The specimen is totally submitted in one cassette. / 08/02/2023 TC:5 CPT: 52592
[2023-07-30] MEDS: Triamcinolone Acetonide 40 MG/ML Vial (10:22)
[2023-07-30] MEDS: Dexamethasone IV Preserv Free 10 MG/ML VIAL IV ×2 (10:22→10:24)
[2023-07-30] MEDS: Lidocaine 1% (2ml-nursery) 2 ML VIAL (10:23)
[2023-07-30 12:55] LABS: Bedside Glucose 134 mg/dL (74-106)
[2023-07-30] MEDS: Oxycodone/Apap 5/325 Tablet PO (14:20)
== END 2023-07-30 15:24 | disposition home or self-care (01) ==
LOC: SDC 06:51 → AC 06:51
PROVIDERS: Anesthesiology; PCP Internal Medicine; Referring Provider Podiatrist Foot & Ankle Surgery; Visit Provider Podiatrist Foot & Ankle Surgery
PROC: (CPT 27650; principal; 2023-07-30 08:15)
DX: M77.32 Calcaneal spur, left foot (principal); M76.62 Achilles tendinitis, left leg; M77.50 Other enthesopathy of unspecified foot and ankle; K21.9 Gastro-esophageal reflux disease without esophagitis; G57.52 Tarsal tunnel syndrome, left lower limb; E78.00 Pure hypercholesterolemia, unspecified; Z87.19 Personal history of other diseases of the digestive system; Z87.39 Personal history of other diseases of the musculoskeletal system and connective tissue; G25.81 Restless legs syndrome; Z90.710 Acquired absence of both cervix and uterus; Z90.49 Acquired absence of other specified parts of digestive tract; Z98.51 Tubal ligation status; Z87.891 Personal history of nicotine dependence; G47.00 Insomnia, unspecified
CPT/HCPCS: 27691 ×2; 28208; 27652; 28090; 28120; 64450; 01470; 73600; 76000; 80307; 82306; 82962; 83036; 83735; 87077; 87081; 88304; C1713; J7120; J2405; J3475

== ENCOUNTER 2023-09-05 12:55 | Emergency (ER) | payer BC, SELFPAY ==
[2023-09-05 12:56] VITALS: BP 120/68; PULSE 86; RESP 14; TEMP 35.6; O2SAT 98
[2023-09-05 13:04] VITALS: BMI 28.0
--- NOTE | 2023-09-05 13:11 | RAD_ITS ---
STUDY: X-RAY - RIGHT HAND, ATTENTION FIFTH FINGER REASON FOR EXAM: Female, 57 years old. Trauma. Deformity. TECHNIQUE: 3 view(s) of the finger were obtained. COMPARISON: None. FINDINGS: There is dorsal dislocation of the distal phalanx of the right fifth finger. There is an osseous defect at the base of the distal phalanx which likely represents a fracture. There are no radiodense foreign bodies. RAD/Finger(s) Min 2 Views IMPRESSION: Dorsal dislocation of the distal phalanx of the right fifth finger. Osseous defect at the base of the distal phalanx which likely represents a fracture. Electronically Signed: Jax Ordonez MD at 13:57 EDT ,
--- NOTE | 2023-09-05 13:12 | EX.ED.UPPERE ---
HPI History of Present Illness Chief Complaint: Upper Extremity Injury Detail of Chief Complaint: Injury to right small finger Informant: patient Narrative Narrative: Patient presents to the emergency department complaint of injury to the right small finger. Patient states that she was in the tub shower when she slipped and started to fall try to catch herself and injured her right small finger. She is left-hand dominant. Denies any other injuries. [facility] Medical History (Updated 09/05/23 @ 13:[address] Latonia Mendoza, DO) Wears glasses Post-menopausal Depression Anxiety High cholesterol Restless legs Migraine headache Difficulty chewing History of TMJ disorder History of IBS Gastric reflux Shortness of breath on exertion Former smoker History of pain when walking Home Medications ?Medication ?Instructions ?Recorded ?Last Taken ?Type amitriptyline 100 mg tablet 150 mg PO QHS 01/20/15 07/29/23 History esomeprazole magnesium 20 mg 40 mg PO DAILY 01/20/15 07/29/23 History capsule,delayed release metaxalone 800 mg tablet 800 mg PO QHS MUSCLE RELAXER 01/20/15 07/29/23 History nabumetone 750 mg tablet 750 mg PO PRN PRN MIGRAINES 01/20/15 07/29/23 History simvastatin 40 mg tablet 40 mg PO QHS 01/20/15 07/29/23 History sumatriptan succinate 100 mg tablet 100 mg PO .X1 PRN HOLLIDAY 01/20/15 07/29/23 History ondansetron 4 mg disintegrating 4 mg PO Q8H PRN PRN Nausea #10 tabs 04/01/16 07/29/23 Rx tablet acetaminophen 500 mg tablet 1,000 mg PO QHS 07/27/23 07/29/23 History (Tylenol Extra Strength) [id number] carb-vit K 1 tab PO DAILY 07/27/23 07/29/23 History 18 mg iron-400 mcg-500 mg tablet (Women's One Daily) pregabalin 25 mg capsule 25 mg PO BID 07/27/23 07/30/23 History tenapanor 50 mg tablet (Ibsrela) 50 mg PO BID 07/27/23 Unknown History zolpidem 5 mg tablet 5 mg PO QHS PRN PRN sleep 07/27/23 07/29/23 History ascorbic acid (vitamin C) 1,000 mg 1 g PO DAILY 90 days #90 tabs 07/30/23 Unknown Rx tablet (Vitamin C) cyclobenzaprine 10 mg tablet 10 mg PO TID muscle spasm 7 days 07/30/23 Unknown Rx #21 tabs docusate sodium 100 mg capsule 100 mg PO DAILY 10 days #10 caps 07/30/23 Unknown Rx (Colace) enoxaparin 40 mg/0.4 mL 40 mg (0.4 mL) subcut DAILY 30 07/30/23 Unknown Rx subcutaneous syringe (Lovenox) days #12 mL ondansetron 4 mg disintegrating 4 mg PO Q8H PRN nausea and 07/30/23 Unknown Rx tablet vomiting 7 days #21 tabs oxycodone-acetaminophen 5 mg-325 1 tab PO Q6H pain 7 days #28 tabs 07/30/23 Unknown Rx mg tablet (Endocet) hydrocodone-acetaminophen 5-325mg 1 tab PO Q4H PRN PRN Pain 2 days 09/05/23 Unknown Rx 5mg-325mg #10 TABLETS Allergy/AdvReac Type Severity Reaction Status Date / Time bacitracin (From Neosporin Allergy Rash Verified 09/05/23 12:59 ([id number])) bacitracin zinc (From Allergy Rash Verified 09/05/23 12:59 Neosporin ([id number])) beeswax Allergy Rash Verified 09/05/23 12:59 coconut oil Allergy Rash Verified 09/05/23 12:59 diphenhydramine HCl (From Allergy Hives Verified 09/05/23 12:59 Benadryl) erythromycin base Allergy Rash Verified 09/05/23 12:59 latex Allergy Rash Verified 09/05/23 12:59 neomycin sulfate (From Allergy Rash Verified 09/05/23 12:59 Neosporin ([id number])) NSAIDS (Non-Steroidal Allergy Rash Verified 09/05/23 12:59 Anti-Inflamma Penicillins Allergy Anaphylaxis Verified 09/05/23 12:59 polymyxin B (From Neosporin Allergy Rash Verified 09/05/23 12:59 ([id number])) strawberry Allergy Rash Verified 09/05/23 12:59 topiramate (From Topamax) Allergy Rash Verified 09/05/23 12:59 tramadol Allergy Rash Verified 09/05/23 12:59 aspirin AdvReac Vomiting Verified 09/05/23 12:59 codeine phosphate (From AdvReac Vomiting Verified 09/05/23 12:59 Tylenol-Codeine #3) hydrocodone AdvReac Other Verified 09/05/23 12:59 morphine AdvReac Swelling Verified 09/05/23 12:59 Surgical History Hx of decompression of ulnar nerve Hx of toe surgery Hx of toe surgery History of surgery on wrist History of hysterectomy Hx of tubal ligation Hx of appendectomy Hx of foot surgery Hx of colonoscopy History of removal of retained hardware Social History (Updated 09/29/18 @ 15:52 by Oscar VERA, PA) Smoking Status: Former smoker ROS ROS ED Review of Systems ROS Unobtainable: other Constitutional Constitutional ED: Reports lethargy; Denies chills, fever(s), sweats or weight loss Eyes Eyes: Denies blurry vision, change in vision or diplopia ENT ENT ED: Denies rhinorrhea or sore throat Cardiovascular Cardiovascular: Denies chest pain, orthopnea or racing heartbeat Respiratory/Chest Respiratory/Chest: Denies cough, dyspnea, dyspnea on exertion, orthopnea or sputum Gastrointestinal Gastrointestinal: Denies abdominal pain, diarrhea, nausea or vomiting Genitourinary Genitourinary ED: Denies dysuria, hematuria or urinary frequency Musculoskeletal Musculoskeletal: Reports other Details: Injury to right small finger ; Denies arthralgias, back pain, myalgias or neck pain Integumentary Denies abscess, Abrasions or rash Neurologic Neurologic: Denies headache(s) or weakness Psychiatric Psychiatric: Denies anxiety, depression or suicidal thoughts Endocrine Endocrinology: Denies polydipsia, polyphagia or polyuria Hematologic/Lymphatic Hematologic/Lymphatic: Denies easy bleeding, easy bruising or lymphadenopathy Allergic/Immunologic Allergic/Immunologic ED: Denies mouth swelling, tongue swelling or urticaria EXAM Physical Exam Const Vital Signs: 09/05/23 12:56 Temperature 96.1 F L Temperature Source Temporal Pulse Rate 86 Respiratory Rate 14 Blood Pressure 120/68 Blood Pressure Mean 85 Pulse Ox 98 Oxygen Delivery Method Room Air Positive well nourished and well developed General Appearance ED: well developed and NAD HEENT Reports TM's clear and moist mucous membranes normocephalic and atraumatic; Negative for trauma or tenderness Tympanic Membrane ED: Yes TM's clear Eyes PERRL and EOMs intact bilaterally General Eye ED: Negative for pale conjunctiva or scleral icterus Neck no lymphadenopathy, supple and no JVD General: Negative for tenderness Chest Wall inspection of chest normal and palpation of chest normal Chest: Negative for tenderness Resp normal respiratory effort and clear to auscultation bilaterally Effort and Inspection: Negative for respiratory distress or pain with movement Auscultation: Negative for rhonchi, wheezes or diminished lung sounds Cardio regular rate, regular rhythm, S1 normal heart sound, S2 normal heart sound and no murmurs Peripheral Pulses: pulses 2+ throughout GI normal to inspection, nondistended, normoactive bowel sounds, soft to palpation, non-tender, non-distended and no masses Back/Spine no CVA tenderness and no thoracic nor lumbar tenderness Extremity Extremity Narrative: Right hand-patient does have obvious deformity to the DIP joint of the right small finger. No broken skin. She is neurovascular intact distally. Unable to flex or extend at the DIP joint. General Extremety ED: Negative for edema General Extremity: Negative for edema Neuro oriented x3, CN's II-XII intact bilaterally, no sensory deficits noted and gait normal Sensorium / Orientation: awake, alert, oriented to person, oriented to place and oriented to time Motor Exam: strength 5/5 throughout and strength abnormal Psych mental status grossly normal Skin no rashes or lesions noted and no wounds MDM MDM MDM Narrative Medical decision making narrative: Patient has dislocation of DIP joint of the right small finger. Gave patient option of digital block versus reduction without anesthesia of any kind. Patient opted for no anesthesia or digital block. With gentle traction I was able to easily reduce the DIP joint. Will obtain a repeat x-ray and place patient in aluminum splint. I did not appreciate any fractures. She is advised to follow-up with her primary care physician within next to 10 days. Radiography Diagnostic Testing: Three-view x-rays of the right small finger obtained interpreted by myself as dislocation of the DIP joint. I do not appreciate any fracture. Three-view postreduction x-rays of the right small finger obtained interpreted by myself as no evidence of fracture with good reduction Discharge Plan Triage Chief Complaint: Upper Extremity Injury ED Provider: Latonia Mendoza Dx/Rx/DC Orders Clinical Impression: Dislocated finger Instructions: ED Finger Dislocation Prescriptions: New hydrocodone-acetaminophen 5-325 mg tablet 1 tab PO Q4H PRN PRN (Reason: Pain) 2 Days Qty: 10 0RF No Action nabumetone 750 MG tablet 750 mg PO PRN PRN (Reason: MIGRAINES) sumatriptan succinate 100 MG tablet 100 mg PO .X1 PRN simvastatin 40 MG tablet 40 mg PO QHS amitriptyline 100 MG tablet 150 mg PO QHS esomeprazole magnesium 20 MG capsule 40 mg PO DAILY metaxalone 800 MG tablet 800 mg PO QHS ondansetron 4 MG tablet 4 mg PO Q8H PRN PRN (Reason: Nausea) Qty: 10 0RF acetaminophen [Tylenol Extra Strength] 500 mg tablet 1,000 mg PO QHS pregabalin 25 mg capsule 25 mg PO BID Ibsrela 50 mg tablet 50 mg PO BID Rx Instructions: must administer immediately before first meal of day/breakfast and dinner Women's One Daily 18 mg iron-400 mcg-500 mg tablet 1 tab PO DAILY zolpidem 5 mg tablet 5 mg PO QHS PRN PRN (Reason: sleep) oxycodone-acetaminophen [Endocet] 5-325 mg tablet 1 tab PO Q6H 7 Days Qty: 28 0RF enoxaparin [Lovenox] 40 mg/0.4 mL syringe 40 mg subcut DAILY 30 Days Qty: 12 0RF cyclobenzaprine 10 mg tablet 10 mg PO TID 7 Days Qty: 21 0RF docusate sodium [Colace] 100 mg capsule 100 mg PO DAILY 10 Days Qty: 10 0RF ascorbic acid (vitamin C) [Vitamin C] 1,000 mg tablet 1 g PO DAILY 90 Days Qty: 90 0RF ondansetron 4 mg tablet,disintegrating 4 mg PO Q8H PRN (Reason: nausea and vomiting) 7 Days Qty: 21 0RF Primary Care Provider: Alexandria Styles Referrals: Alexandria Styles MD [Primary Care Provider] - 5-7 Days Print Language: Pashto Disposition Disposition: Home, Self Care Discharge Date/Time: 09/05/23 14:00
--- NOTE | 2023-09-05 13:36 | RAD_ITS ---
STUDY: X-RAY - RIGHT HAND, ATTENTION FIFTH FINGER REASON FOR EXAM: Female, 57 years old. Post reduction TECHNIQUE: 3 view(s) of the finger were obtained. COMPARISON: Right hand radiograph dated 10/20/2016. FINDINGS: The patient is status post reduction of the previously seen reduction of the dislocation of the fifth distal interphalangeal joint. Alignment is satisfactory. There is no fracture identified. There are no radiodense foreign bodies. RAD/Finger(s) Min 2 Views IMPRESSION: Status post reduction with satisfactory alignment. Electronically Signed: Jax Ordonez MD at 14:24 EDT ,
== END 2023-09-05 14:00 | disposition home or self-care (01) ==
PROVIDERS: Emergency Provider Emergency Medicine; PCP Internal Medicine; Visit Provider Emergency Medicine
DX: S63.256A Unspecified dislocation of right little finger, initial encounter (principal); Z87.891 Personal history of nicotine dependence; W01.10XA Fall on same level from slipping, tripping and stumbling with subsequent striking against unspecified object, initial encounter; Y93.E1 Activity, personal bathing and showering; E78.00 Pure hypercholesterolemia, unspecified; F32.A Depression, unspecified; K21.9 Gastro-esophageal reflux disease without esophagitis; Z79.899 Other long term (current) drug therapy; Z90.710 Acquired absence of both cervix and uterus; Z98.51 Tubal ligation status; Z90.49 Acquired absence of other specified parts of digestive tract
CPT/HCPCS: 26770; 73140; 99283